=== PATIENT | female | born 1990 | race Caucasian/White ===

== ENCOUNTER 2020-07-29 06:47 | Outpatient (REF) | payer BC, SELFPAY | END 2020-07-29 06:48 | disposition home or self-care (01) | LOC: HO.LAB 06:47 | PROVIDERS: Visit Provider Internal Medicine | DX: Z20.828 Contact with and (suspected) exposure to other viral communicable diseases (principal) | CPT/HCPCS: C9803; U0003 ==

== ENCOUNTER 2020-08-13 08:53 | Outpatient (REF) | payer BC, SELFPAY | END 2020-08-13 08:54 | disposition home or self-care (01) | LOC: HO.LAB 08:53 | PROVIDERS: Visit Provider Internal Medicine | DX: Z20.828 Contact with and (suspected) exposure to other viral communicable diseases (principal) | CPT/HCPCS: C9803; U0003 ==

== ENCOUNTER 2021-07-06 12:37 | Emergency (ER) | payer SELFPAY ==
[2021-07-06 12:42] VITALS: BP 129/79; PULSE 107; RESP 18; TEMP 37.6; O2SAT 99; BMI 36.6
--- NOTE | 2021-07-06 12:58 | ED.SKABFB ---
HPI - Skin/Abscess/Foreign Bdy General Chief complaint: Skin/Abscess/Foreign Body Stated complaint: lump on calf Time Seen by Provider: 07/06/21 12:50 Source: patient Mode of arrival: ambulatory Limitations: no limitations History of Present Illness HPI narrative: Left calf abscess complaint: abscess/boil Onset (ago): day(s) (1) Location: LLE (left calf) Severity: moderate Quality: burning Pain Consistency: constant Associated symptoms: fever Related Data Home Medications Medication Instructions Recorded Confirmed blood sugar diagnostic #10 ea 08/19/20 lancets 28 gauge #100 ea 08/19/20 Previous Rx's Medication Instructions Recorded paroxetine HCl 40 mg tablet 40 mg PO DAILY #90 tab 06/27/20 metformin 500 mg tablet 500 mg PO DAILY #90 tab 11/27/20 ibuprofen 800 mg tablet 800 mg PO TID PRN #20 tab 07/06/21 sulfamethoxazole 800 1 tab PO Q12H #14 tab 07/06/21 mg-trimethoprim 160 mg tablet (Bactrim DS) Allergies Allergy/AdvReac Type Severity Reaction Status Date / Time latex [LATEX] Allergy Severe RASH Unverified 05/30/20 15:59 iodine Allergy Unknown Rash Verified 03/08/20 00:00 SEAFOOD Allergy Severe ANAPHYLAXIS Uncoded 05/30/20 15:59 Latex Allergy Unknown Uncoded 03/08/20 00:00 Shellfish Allergy Unknown Uncoded 03/08/20 00:00 PMFSH Past Medical History Attestation statement: The following information was validated with the patient. Medical History (Updated 07/06/21 @ 13:43 by Lopez Small MD) Physical examination of employee Social History Social History Advance Directives: No Advance Directives Information Provided: No Patient : No Physical Exam Vital Signs: Vital Signs: Last Vital Signs Temp 99.7 F 07/06/21 12:42 Pulse 107 H 07/06/21 12:42 Resp 18 07/06/21 12:42 BP 129/79 07/06/21 12:42 Pulse Ox 99 07/06/21 12:42 Body Mass Index 36.6 Const: General: cooperative and anxious Nutritional Appearance: well nourished Limitations: no limitations HENMT: Head: Yes normal to inspection Face and sinus: Yes normal facial exam Mouth: Normal oral and palatal mucosa present Neck: Neck: Yes normal visual inspection, Yes full ROM and Yes no lymphadenopathy Chest: Chest palpation & inspection: normal inspection of the chest Resp: Effort & Inspection: normal respiratory effort Auscultation: clear to auscultation bilaterally Cardio: Jugular venous distension: no JVD Rate: regular rate Rhythm: regular rhythm GI: Inspection: Yes normal to inspection Palpation (GI): Soft to palpation and Tenderness to palpation present (GI) Skin: Other: left claf there an area of 2X2 cn red tender mild fluttuance Course Reevaluation(s) Reevaluation #1: I performed ID see note skin prepped with alcohol (allergic to betadine) obtained seropurulent drainage. I did not pack the wound because possible allergy to iodoform as well,send home with bactrim DS (likely MRSA) Procedures Abscess I/D Site: other (left leg) Side (if applicable): left Local Anesthetic: lidocaine 1% Amount of anesthesia used (mL): 3 Technique: incised with blade Amount of fluid expressed (mL): 3 Sent for culture/gram staining?: No Irrigation: No Packing used?: none (pt has allergy to betadine and packing has iodoform(therefore packing was not inserted)) Discharge Plan Discharge Clinical Impression: Abscess of left leg Patient Disposition: Home, Self-Care Instructions: Abscess Incision and Drainage (DC) Prescriptions: New sulfamethoxazole-trimethoprim [Bactrim DS] 800-160 mg tablet 1 tab PO Q12H Qty: 14 RF: 0 ibuprofen 800 mg tablet 800 mg PO TID PRN (Reason: pain) Qty: 20 RF: 0 No Action paroxetine HCl 40 mg tablet 40 mg PO DAILY Qty: 90 RF: 8 metformin 500 mg tablet 500 mg PO DAILY Qty: 90 RF: 8 Stand Alone Forms: Work/School Release Interventions: ED Discharge Assessment Last Done: 07/06/21 13:56 Discharge Date/Time: 07/06/21 13:57
[2021-07-06] MEDS: Ibuprofen 800 MG TABLET PO (13:02)
[2021-07-06] MEDS: LORazepam 1 MG TABLET PO (13:02)
== END 2021-07-06 13:57 | disposition home or self-care (01) ==
PROVIDERS: Emergency Provider Emergency Medicine; PCP Internal Medicine
DX: L02.416 Cutaneous abscess of left lower limb (principal); Z79.899 Other long term (current) drug therapy
CPT/HCPCS: 10060; 99283

== ENCOUNTER 2021-11-04 11:05 | Outpatient (REF) | payer OTHER, SELFPAY ==
[2021-11-04 11:41] LABS: MANUAL DIFF FLAG NO
[2021-11-04 12:10] LABS: Basophils Percent Auto 0.7 % (0-2); Eosinophils Absolute Auto 0.1 X10*3/uL (0.0-0.4); Eosinophils Percent Auto 2.2 % (0-4); Hematocrit 41.8 % (37.0-47.0); Hemoglobin 13.7 g/dl (12.0-16.0); Imm Gran Abs Auto 0.01 X10*3/uL (0.00-0.03); Imm Gran Pct Auto 0.2 % (0.0-0.4); Lymphocytes Absolute Auto 2.4 X10*3/uL (1.2-4.9); Lymphocytes Percent Auto 44.2 % (20-40); Mean Corpuscular HGB Conc 32.8 g/dl (31.0-35.0); Mean Corpuscular Hemoglobin 27.7 pg (27.0-33.0); Mean Corpuscular Volume 84.4 fL (80.0-98.0); Mean Platelet Volume 9.1 fL (9.4-12.3); Monocytes Absolute Auto 0.4 X10*3/uL (0.1-1.2); Monocytes Percent Auto 6.7 % (2-11); Neutrophils Absolute Auto 2.5 x10*3/uL (2.0-8.3); Platelet Count 381 X10*3/uL (160-400); Red Blood Count 4.95 X10*6/uL (4.20-5.50); Red Cell Distribution Width 12.2 % (11.0-16.0); White Blood Count 5.4 X10*3/uL (4.8-10.8)
[2021-11-04 12:18] LABS: Estimated Average Glucose 223 mg/dL; Hemoglobin A1c % 9.4 %
[2021-11-04 13:00] LABS: Thyroid Stimulating Hormone 0.87 uIU/mL (0.32-4.0)
[2021-11-04 13:04] LABS: Anion Gap 12 (12-20); Blood Urea Nitrogen 10 mg/dL (9-16); Calcium 9.5 mg/dL (8.4-10.2); Carbon Dioxide 28 mmol/L (22-29); Chloride 103 mmol/L (96-108); Estimated Glomerular Filt Rate > 60; Glucose Random 296 mg/dL (60-115); Potassium 4.7 mmol/L (3.3-5.1); Sodium 138 mmol/L (135-145)
== END 2021-11-04 11:06 | disposition home or self-care (01) ==
LOC: HO.LAB 11:05
PROVIDERS: PCP Internal Medicine; Visit Provider Internal Medicine
DX: Z00.00 Encounter for general adult medical examination without abnormal findings (principal); Z13.0 Encounter for screening for diseases of the blood and blood-forming organs and certain disorders involving the immune mechanism; E11.9 Type 2 diabetes mellitus without complications; R51.9 Headache, unspecified
CPT/HCPCS: 36415; 80048; 83036; 84443; 85025

== ENCOUNTER 2021-11-19 08:10 | Outpatient (REF) | payer OTHER, SELFPAY ==
[2021-11-19 16:30] LABS: CT PCR NOT DETECTED (Not Detect.); NG PCR NOT DETECTED (Not Detect.)
[2021-11-22 09:52] LABS: HPV mRNA E6/E7 rflx Not Detected (Not Detected)
== END 2021-11-19 08:11 | disposition home or self-care (01) ==
LOC: HO.LAB 08:10
PROVIDERS: PCP Internal Medicine; Visit Provider Advanced Practice Midwife
DX: Z01.411 Encounter for gynecological examination (general) (routine) with abnormal findings (principal); Z11.51 Encounter for screening for human papillomavirus (HPV); L68.0 Hirsutism; E11.9 Type 2 diabetes mellitus without complications; Z79.84 Long term (current) use of oral hypoglycemic drugs; Z20.2 Contact with and (suspected) exposure to infections with a predominantly sexual mode of transmission
CPT/HCPCS: 81025; 87491; 87591; 87624; 88142

== ENCOUNTER 2022-01-20 11:53 | Outpatient (REF) | payer OTHER, SELFPAY ==
--- NOTE | ~2022-01-20 | US_ITS ---
EXAMINATION: US PELVIS CLINICAL INFORMATION: Irregular menstruation COMPARISON: None TECHNIQUE: Ultrasound of the pelvis is performed using both transabdominal and transvaginal transducers along with Doppler. Transvaginal imaging is performed due to inadequate visualization transabdominally. FINDINGS: Uterus: The uterus is anteverted and measures 8.1 x 3.3 x 5.1 cm. The double wall endometrial thickness is 6 mm. The uterus is smooth in contour and has normal myometrial echogenicity. No visible fibroid. Adnexa: Both ovaries are visualized and unremarkable in appearance. Trace simple physiologic volume pelvic free fluid. Right ovary measures 3.0 x 1.5 x 2.1 cm. Left ovary measures 3.4 x 1.6 x 2.1 cm. US/US pelvic and transvaginal IMPRESSION: Unremarkable pelvic ultrasound.
== END 2022-01-20 11:54 | disposition home or self-care (01) ==
LOC: HO.US 11:53
PROVIDERS: Visit Provider Advanced Practice Midwife
DX: N92.6 Irregular menstruation, unspecified (principal); L68.0 Hirsutism
CPT/HCPCS: 76830; 76856

== ENCOUNTER 2022-01-30 10:09 | Outpatient (REF) | payer OTHER, SELFPAY ==
[2022-01-30 11:41] LABS: Thyroid Stimulating Hormone 1.22 uIU/mL (0.32-4.0)
[2022-01-31 07:57] LABS: DHEA Sulfate 598 mcg/dL (19-237); Prolactin 3.3 ng/mL
[2022-02-05 20:12] LABS: Testosterone, Free 5.2 pg/mL (0.1-6.4); Testosterone, Total 32 ng/dL (2-45)
== END 2022-01-30 10:10 | disposition home or self-care (01) ==
LOC: HO.LAB 10:09
PROVIDERS: PCP Internal Medicine; Visit Provider Advanced Practice Midwife
DX: L68.0 Hirsutism (principal); N92.6 Irregular menstruation, unspecified
CPT/HCPCS: 36415; 82627; 83498; 84146; 84402; 84403; 84443

== ENCOUNTER → 2022-02-11 11:40 | Outpatient (BNVA) | payer OTHER, SELFPAY | PROVIDERS: PCP Internal Medicine; Visit Provider Advanced Practice Midwife | DX: Z13.89 Encounter for screening for other disorder (principal) ==

== ENCOUNTER 2022-02-26 11:27 | Outpatient (REF) | payer OTHER, SELFPAY ==
[2022-02-26 11:37] LABS: MANUAL DIFF FLAG NO
[2022-02-26 12:17] LABS: Basophils Percent Auto 0.6 % (0-2); Eosinophils Absolute Auto 0.1 X10*3/uL (0.0-0.4); Eosinophils Percent Auto 1.7 % (0-4); Hematocrit 40.6 % (37.0-47.0); Hemoglobin 13.2 g/dl (12.0-16.0); Imm Gran Abs Auto 0.02 X10*3/uL (0.00-0.03); Imm Gran Pct Auto 0.4 % (0.0-0.4); Lymphocytes Absolute Auto 2.4 X10*3/uL (1.2-4.9); Lymphocytes Percent Auto 44.5 % (20-40); Mean Corpuscular HGB Conc 32.5 g/dl (31.0-35.0); Mean Corpuscular Hemoglobin 27.3 pg (27.0-33.0); Mean Corpuscular Volume 84.1 fL (80.0-98.0); Mean Platelet Volume 8.7 fL (9.4-12.3); Monocytes Absolute Auto 0.4 X10*3/uL (0.1-1.2); Monocytes Percent Auto 6.7 % (2-11); Neutrophils Absolute Auto 2.5 x10*3/uL (2.0-8.3); Neutrophils Percent Auto 46.1 % (45-73); Platelet Count 363 X10*3/uL (160-400); Red Blood Count 4.83 X10*6/uL (4.20-5.50); Red Cell Distribution Width 12.9 % (11.0-16.0); White Blood Count 5.4 X10*3/uL (4.8-10.8)
[2022-02-26 12:31] LABS: Estimated Average Glucose 189 mg/dL; Hemoglobin A1c % 8.2 %
[2022-02-26 12:42] LABS: Alanine Aminotransferase 35 U/L (0-31); Alkaline Phosphatase 85 U/L (39-117); Anion Gap 11 (12-20); Aspartate Amino Transferase 18 U/L (5-31); Bilirubin Total 0.5 mg/dL (0.0-1.0); Blood Urea Nitrogen 11 mg/dL (9-16); Calcium 9.1 mg/dL (8.4-10.2); Carbon Dioxide 26 mmol/L (22-29); Chloride 107 mmol/L (96-108); Cholesterol 160 mg/dL; Estimated Glomerular Filt Rate > 60; Glucose Fasting 155 mg/dL (60-99); HDL Cholesterol 37 mg/dL; LDL Cholesterol Calculated 102 mg/dl; Potassium 3.9 mmol/L (3.3-5.1); Sodium 140 mmol/L (135-145); Total Protein 6.7 g/dL (6.5-8.0); Triglycerides 105 mg/dL
[2022-02-26 13:05] LABS: Thyroid Stimulating Hormone 0.72 uIU/mL (0.32-4.0)
== END 2022-02-26 11:28 | disposition home or self-care (01) ==
LOC: HO.LAB 11:27
PROVIDERS: PCP Internal Medicine; Visit Provider Internal Medicine
DX: Z00.00 Encounter for general adult medical examination without abnormal findings (principal); Z13.0 Encounter for screening for diseases of the blood and blood-forming organs and certain disorders involving the immune mechanism; Z13.9 Encounter for screening, unspecified; E11.9 Type 2 diabetes mellitus without complications
CPT/HCPCS: 36415; 80053; 80061; 83036; 84443; 85025

== ENCOUNTER 2024-08-18 10:40 | Outpatient (AMB) | payer SELFPAY ==
--- NOTE | 2024-08-18 10:47 | MHC.PC.OV ---
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: Present Accompanied by: Spouse Allergies latex [LATEX] Allergy (Severe, Verified 08/18/24 10:48) RASH iodine Allergy (Unknown, Verified 08/18/24 10:48) Rash SEAFOOD Allergy (Severe, Uncoded 08/18/24 10:48) ANAPHYLAXIS Shellfish Allergy (Unknown, Uncoded 08/18/24 10:48) Rash Medication List - Last Reconciled 08/21/24 by Tomasz Avina MD pioglitazone 30 mg PO DAILY PNV [id number] 400 mcg-35 mg- 25 mg-5 mg ( Gummies) 1 tab PO DAILY Tobacco use date assessed: 08/18/24 Dental Screening Dental Screen Date: 08/18/24 Did you have a dental visit in the last 12 months?: Yes Did you have a dental problem in the last 6 months where you did not have access to dental care?: No Was dental information given to patient?: Patient has dentist HPI [facility] 08/13 high bp HPI Details [place] was 400 at [facility]; not tolerting the metformin due to diarrhea [facility] Medical History (Updated 02/11/22 @ 12:19 by Elina Casey) Hirsutism Elevated DHEA Type 2 diabetes mellitus with obesity (Unknown) Thyroid goiter Diabetes mellitus Physical examination of employee Surgical History Hx of cholecystectomy Family History Mother Cervical cancer Other Mental health disorder Substance use disorder Social History (Updated 08/18/24 @ 10:52 by PAT Alvarado) Housing: Condominium Alcohol intake: never Patient Tobacco Use Status: Former Tobacco user Tobacco use type: Cigarette Cigarette Packs Per Day: 0.5 Cigarettes Per Day: 5 e-Cigarette/Vaping Use: Never Used Second Hand Smoke Exposure: Yes service: No Current occupational status: employed 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 1. Little interest or pleasure in doing things: not at all 2. Feeling down, depressed, or hopeless: not at all 3. Trouble falling or staying asleep, or sleeping too much: not at all 4. Feeling tired or having little energy: not at all 5. Poor appetite or overeating: not at all 6. Feeling bad about yourself - or that you are a failure or have let yourself or your family down: not at all 7. Trouble concentrating on things, such as reading the newspaper or watching television: not at all 8. Moving or speaking so slowly that other people could have noticed. Or the opposite - being so fidgety or restless that you have been moving around a lot more than usual: not at all 9. Thoughts that you would be better off or of hurting yourself in some way: not at all Total score: 0 Depression Screening Interpretation: Negative Depression Screening Done: Yes Source: Developed by Drs. Uriel Norton, Berna Alvarez, Nitish Martinez and colleagues, with an educational gabrielle from [employer]. Thrive Questionnaire Date Thrive assessed: 08/18/24 I am a: Patient What is your living situation today?: I have a steady place to live Within the past 12 months, did the food you bought not last and you didn't have the money to get more?: Never true Within the past 12 months, did you worry whether your food would run out before you got money to buy more?: Never true Do you have trouble paying for medicines?: No Do you have trouble getting transportation to medical appointments?: No Do you have trouble paying your heating and electricity bill?: No Do you have trouble taking care of your child, family member or friend?: No Do you have trouble with day-to-day activities such as bathing, preparing meals, shopping, managing finances, etc.?: No Are you currently unemployed and looking for a job?: No Are you interested in more education?: No Currently or been in a relationship where the following occur: No concerns reported THRIVE Score: 0 AUDIT C Alcohol Use Questionnaire (AUDIT-C) 2. How many drinks containing alcohol do you have on a typical day when you are drinking?: 1 or 2 3. How often do you have six or more drinks on one occasion?: Never Total Score: 0 VICENTE-7 AMB Questionnaire VICENTE-7 Date VICENTE - 7 assessed: 08/18/24 Feeling nervous, anxious, or on edge: 1 = Several days Not being able to stop or control worryin = Nearly every day Worrying too much about different things: 3 = Nearly every day Trouble relaxin = More than half the days Being so restless that it is hard to sit still: 2 = More than half the days Becoming easily annoyed or irritable: 3 = Nearly every day Feeling afraid as if something awful might happen: 0 = Not at all Total VICENTE-7 score (0-4 normal; 5-9 mild; 10-14 moderate; 15-21 severe): 14 Source: Developed by Drs. Uriel Norton, Berna Alvarez, Nitish Martinez and colleagues, with an educational gabrielle from [employer]. Review of Systems Const Denies chills, Denies headache(s) and Denies weight loss ENT Denies headache(s) Card Denies chest pain, Denies syncope, Denies irregular heart rhythm and Denies dyspnea Resp Denies chest congestion, Denies cough and Denies dyspnea GI Denies abdominal pain, Denies change in stool character, Denies nausea and Denies vomiting Musc Denies deformity and Denies joint swelling Neuro Denies syncope and Denies headache(s) Physical exam (Primary Care) Vital Signs: Last Vital Signs Pulse 77 08/18/24 10:49 BP 120/70 08/18/24 10:49 Pulse Ox 99 08/18/24 10:49 Oxygen Delivery Method Room Air 08/18/24 10:49 BMI result Body Mass Index 34.1 Tobacco/Smoking Status: Tobacco use Status Tobacco use date assessed 08/18/24 08/18/24 10:54 Patient Tobacco Use Status Former Tobacco user 08/18/24 10:54 Tobacco use type Cigarette 08/18/24 10:54 e-Cigarette/Vaping Use Never Used 08/18/24 10:54 PHQ-9: PHQ-9 Score PHQ-9: Total score 0 08/18/24 12:54 Depression Screening Interpretation: Negative Thrive Assessment: Date of Thrive Assessment Date Thrive assessed 08/18/24 08/18/24 10:54 Currently or been in a relationship where the following occur: No concerns reported Const General: cooperative, comfortable, no acute distress and alert Neck Neck: Yes no lymphadenopathy Thyroid: Thyroid normal Resp Effort & Inspection: normal respiratory effort Auscultation: clear to auscultation bilaterally Percussion: percussion normal Cardio Jugular venous distension: no JVD Palpation: normal PMI Rate: regular rate Rhythm: regular rhythm Heart sounds: S1 normal heart sound present and S2 normal heart sound present GI Inspection: Yes normal to inspection Palpation (GI): No hepatosplenomegaly present Skin General skin exam: no rashes or lesions noted Extrem General: Yes no clubbing, cyanosis or edema Coding Level of Care Code Est Pt Level 3 (21132) Diagnoses Type 2 diabetes mellitus with obesity E11.69; E66.9 Assessment & Plan Assessment & Plan (1) Type 2 diabetes mellitus with obesity: Onset Date: Unknown Code(s): E11.69 - Type 2 diabetes mellitus with other specified complication; E66.9 - Obesity, unspecified Category: Medical Plan: stop metformin; start pioglitazone; do labs Orders: Orders Microalbumin, Random (w Creat) 08/18/24 E11.69 - Type 2 diabetes mellitus with other specified complication, E66.01 - Morbid (severe) obesity due to excess calories Complete Blood Count Auto Diff 08/18/24 Z13.0 - Encounter for screening for diseases of the blood and blood-forming organs and certain disorders involving the immune mechanism Lipid Panel 08/18/24 Z13.220 - Encounter for screening for lipoid disorders Thyroid Stimulating Hormone 08/18/24 Z13.29 - Encounter for screening for other suspected endocrine disorder Comprehensive Dickens. Panel Fast 08/18/24 Z13.9 - Encounter for screening, unspecified Hemoglobin A1c 08/18/24 R73.9 - Hyperglycemia, unspecified Medications: New pioglitazone 30 mg PO DAILY 30 tabs 3RF Discontinued metformin Discontinued Reason: Doctor's Order 500 mg PO DAILY 90 tabs 8RF
[2024-08-18 10:49] VITALS: BP 120/70; PULSE 77; O2SAT 99; BMI 34.1
== END 2024-08-18 11:03 | disposition home or self-care (01) ==
PROVIDERS: PCP Internal Medicine; Visit Provider Internal Medicine
DX: E11.69 Type 2 diabetes mellitus with other specified complication (principal); E66.9 Obesity, unspecified; Z68.34 Body mass index [BMI] 34.0-34.9, adult

== ENCOUNTER → 2024-08-18 10:40 | Outpatient (BNVA) | payer SELFPAY | PROVIDERS: PCP Internal Medicine; Visit Provider Internal Medicine | DX: E11.69 Type 2 diabetes mellitus with other specified complication (principal); E66.9 Obesity, unspecified; Z68.34 Body mass index [BMI] 34.0-34.9, adult | CPT/HCPCS: 96127; 99212 ==